=== PATIENT | female | born 1930 | race Caucasian/White ===

== ENCOUNTER 2018-02-17 16:05 | Inpatient (IN) | payer MEDICARE ==
[~2018-02-17] VITALS: Ht 157.5 cm; Wt 60.7 kg
[~2018-02-17 16:05] MED LIST: ASPI-152 PO; BISA10SU65 PR; CITRICAL PO; DOCU-131 PO; DRON400T PO; ENOX40SY4 SQ; HYDR-3245 PO; MAGN400O7 PO; OLME40TA12 PO; SIMV20TA3 PO; SOTA80TA PO; TELM40TA PO
[2018-02-17 16:41] LABS: BASOPHILS # (AUTO) 0.04 x10^3/uL (0-0.1); BASOPHILS % (AUTO) 1 % (0-1); EOSINOPHILS # (AUTO) 0.06 x10^3/uL (0-0.4); EOSINOPHILS % (AUTO) 1 % (1-7); LYMPHOCYTES # (AUTO) 2.44 x10^3/uL (1-3.4); LYMPHOCYTES % (AUTO) 33 % (22-44); MD NO; MEAN CORPUSCULAR HEMOGLOBIN 30.5 pg (27.0-34.8); MEAN CORPUSCULAR HGB CONC 33.4 g/dL (32.4-35.8); MEAN CORPUSCULAR VOLUME 91.2 fL (80-100); MEAN PLATELET VOLUME 8.1 fL (7.4-10.4); MONOCYTES # (AUTO) 1.03 x10^3/uL (0.2-0.8); MONOCYTES % (AUTO) 14 % (2-9); NEUTROPHILS # (AUTO) 3.84 x10^3/uL (1.8-6.8); NEUTROPHILS % (AUTO) 52 % (42-75); PLATELET COUNT 278 x10^3/uL (130-400); RED BLOOD COUNT 5.07 x10^6/uL (3.82-5.3); RED CELL DISTRIBUTION WIDTH 14.3 % (9.6-15.2)
[2018-02-17 16:46] LABS: ALBUMIN 3.6 g/dL (3.4-5.0); ANION GAP 8 mmol/L (5-15); CALCIUM 8.4 mg/dL (8.5-10.1); CHLORIDE 104 mmol/L (98-107); CREATININE 1.07 mg/dL (0.55-1.02)
[2018-02-17] MEDS ORDERED: SIMV10TA3 PO (17:57)
[2018-02-17] MEDS ORDERED: ASPI81TA50 PO (17:57)
[2018-02-17] MEDS ORDERED: ONDANSETRON ODT 4 MG PO PRN (20:30)
[2018-02-17] MEDS ORDERED: DIPHENHYDRAMINE 25 MG CAPSULE PO PRN (20:30)
[2018-02-17] MEDS ORDERED: DOCUSATE 100 MG CAPSULE PO PRN (20:30)
[2018-02-17] MEDS ORDERED: hydrALAzine 20 MG/ML, 1ML IVPush PRN (20:30)
[2018-02-17] MEDS ORDERED: SIMVASTATIN 10 MG TABLET PO SCH (21:00)
[2018-02-17 21:29] VITALS: BP 176/74
[2018-02-17] MEDS ORDERED: DRONEDARONE 400MG TABLET PO ONE (21:30)
[2018-02-17] MEDS ORDERED: DRONEDARONE 400MG TABLET PO SCH (21:30)
[2018-02-17 21:53] VITALS: BP 149/73
[2018-02-18 03:22] VITALS: BP 144/73
[2018-02-18 05:44] LABS: BASOPHILS # (AUTO) 0.03 x10^3/uL (0-0.1); BASOPHILS % (AUTO) 1 % (0-1); EOSINOPHILS # (AUTO) 0.06 x10^3/uL (0-0.4); EOSINOPHILS % (AUTO) 1 % (1-7); LYMPHOCYTES # (AUTO) 1.64 x10^3/uL (1-3.4); LYMPHOCYTES % (AUTO) 25 % (22-44); MD NO; MEAN CORPUSCULAR HEMOGLOBIN 30.5 pg (27.0-34.8); MEAN CORPUSCULAR HGB CONC 34.1 g/dL (32.4-35.8); MEAN CORPUSCULAR VOLUME 89.4 fL (80-100); MEAN PLATELET VOLUME 8.1 fL (7.4-10.4); MONOCYTES # (AUTO) 0.81 x10^3/uL (0.2-0.8); MONOCYTES % (AUTO) 12 % (2-9); NEUTROPHILS # (AUTO) 4.15 x10^3/uL (1.8-6.8); NEUTROPHILS % (AUTO) 62 % (42-75); PLATELET COUNT 263 x10^3/uL (130-400)
[2018-02-18 06:11] LABS: ANION GAP 9 mmol/L (5-15); CHLORIDE 107 mmol/L (98-107)
[2018-02-18 06:16] LABS: CALCIUM 8.1 mg/dL (8.5-10.1); CHOL/HDL RATIO 2.2; CHOLESTEROL, TOTAL 133 mg/dL (140-239); CREATININE 0.93 mg/dL (0.55-1.02); HDL CHOL % 46 % (28-40); HDL CHOLESTEROL (DIRECT) 61 mg/dL (40-60); LDL CHOLESTEROL,CALCULATED 53 mg/dL (54-169); LDL/HDL RATIO 0.9 (0.5-3.0); TRIGLYCERIDES 94 mg/dL (50-200); VLDL CHOLESTEROL 19 mg/dL (0-25)
[2018-02-18] MEDS ORDERED: ACETAMINOPHEN 500 MG TABLET ONE (08:23)
[2018-02-18] MEDS ORDERED: ACETAMINOPHEN 500 MG TABLET PO PRN (08:30)
[2018-02-18 08:36] VITALS: BP 157/79
[2018-02-18] MEDS: DRONEDARONE 400MG TABLET PO SCH ×2 (08:53→17:34)
[2018-02-18] MEDS: ASPIRIN 81 MG TABLET EC PO SCH (09:00)
[2018-02-18 15:54] VITALS: BP 126/60
[2018-02-18] MEDS ORDERED: ENOXAPARIN 40 MG/0.4 ML SQ SCH (16:00)
[2018-02-18 19:45] VITALS: BP 152/67
[2018-02-18] MEDS ORDERED: ATORVASTATIN 40 MG TABLET PO SCH (21:00)
[2018-02-19 01:20] VITALS: BP 149/68
[2018-02-19] MEDS ORDERED: ATROPINE SYRINGE 0.1 MG/ML, 10ML IVPush ONE (02:00)
[2018-02-19 05:41] LABS: BASOPHILS # (AUTO) 0.04 x10^3/uL (0-0.1); BASOPHILS % (AUTO) 1 % (0-1); EOSINOPHILS # (AUTO) 0.17 x10^3/uL (0-0.4); EOSINOPHILS % (AUTO) 3 % (1-7); LYMPHOCYTES # (AUTO) 2.56 x10^3/uL (1-3.4); LYMPHOCYTES % (AUTO) 41 % (22-44); MD NO; MEAN CORPUSCULAR HEMOGLOBIN 30.3 pg (27.0-34.8); MEAN CORPUSCULAR HGB CONC 33.6 g/dL (32.4-35.8); MEAN CORPUSCULAR VOLUME 90.1 fL (80-100); MEAN PLATELET VOLUME 8.1 fL (7.4-10.4); MONOCYTES # (AUTO) 0.68 x10^3/uL (0.2-0.8); MONOCYTES % (AUTO) 11 % (2-9); NEUTROPHILS # (AUTO) 2.73 x10^3/uL (1.8-6.8); NEUTROPHILS % (AUTO) 44 % (42-75); PLATELET COUNT 274 x10^3/uL (130-400); RED BLOOD COUNT 4.81 x10^6/uL (3.82-5.3); RED CELL DISTRIBUTION WIDTH 14.4 % (9.6-15.2)
[2018-02-19 05:48] LABS: ALBUMIN 2.9 g/dL (3.4-5.0); ANION GAP 7 mmol/L (5-15); CALCIUM 8.2 mg/dL (8.5-10.1); CHLORIDE 109 mmol/L (98-107)
[2018-02-19 05:49] LABS: CREATININE 0.98 mg/dL (0.55-1.02)
[2018-02-19 07:00] VITALS: BP 133/72
[2018-02-19] MEDS: ASPIRIN 81 MG TABLET EC PO SCH (08:38)
[2018-02-19] MEDS: DRONEDARONE 400MG TABLET PO SCH (08:38)
[2018-02-19] MEDS ORDERED: LISINOPRIL 5 MG TABLET PO SCH (09:00)
[2018-02-19] MEDS ORDERED: APIXABAN 2.5 MG TABLET PO SCH (09:30)
[2018-02-19] MEDS ORDERED: APIX2.5T PO (11:01)
[2018-02-19] MEDS ORDERED: ATOR40TA78 PO (11:01)
[2018-02-19] MEDS ORDERED: LISI5TAB7 PO (11:04)
== END 2018-02-19 12:33 | disposition home or self-care (01) | DRG 69 ==
LOC: ED 18:43 → EDIP 18:50 → 4EST 20:20 → DCLOUNGE 02-19 12:10
PROVIDERS: ADMIT Hospitalist; ATTEND Hospitalist
DX: G45.9 Transient cerebral ischemic attack, unspecified (principal); D68.69 Other thrombophilia; I48.0 Paroxysmal atrial fibrillation; I50.30 Unspecified diastolic (congestive) heart failure; I11.0 Hypertensive heart disease with heart failure; R13.10 Dysphagia, unspecified; E78.5 Hyperlipidemia, unspecified; I45.10 Unspecified right bundle-branch block; J00 Acute nasopharyngitis [common cold]; I16.0 Hypertensive urgency; E78.00 Pure hypercholesterolemia, unspecified; G45.1 Carotid artery syndrome (hemispheric); J32.0 Chronic maxillary sinusitis; Z72.0 Tobacco use; Z79.01 Long term (current) use of anticoagulants; Z82.3 Family history of stroke
CPT/HCPCS: 36415; 70450; 70551; 71045; 80048; 80061; 82040; 83735; 85025; 93005; 93306; 93880; 99285; J1650; 92523-GN; J0360